=== PATIENT | female | born 1985 | race Caucasian/White ===

== ENCOUNTER 2024-05-16 22:41 | Emergency (ER) | payer SELFPAY ==
[~2024-05-16] VITALS: Ht 27.9 cm; Wt 83.6 kg
[2024-05-16] MEDS ORDERED: BENZTROPINE1 MG PO (23:03)
[2024-05-16] MEDS ORDERED: PROZAC20 M1 PO (23:03)
[2024-05-16] MEDS ORDERED: DICLOFENAC35 MG PO (23:04)
[2024-05-16] MEDS ORDERED: PROAIR HFA0.09 MG/AC IH (23:05)
[2024-05-16] MEDS ORDERED: Cyclobenzaprine 10 MG TAB PO ONE (23:45)
[2024-05-16] MEDS ORDERED: Home Cyclobenzaprine 10 MG #2 TABS/PACK PO ONE (23:45)
[2024-05-16] MEDS ORDERED: CYCLOBENZAPRINE10 M1 PO (23:47)
[2024-05-17] VITALS: BP 105/77
== END 2024-05-17 00:19 | disposition home or self-care (01) ==
LOC: ED 22:41
DX: M25.552 Pain in left hip (principal)